=== PATIENT | female | born 1925 | race Caucasian/White ===

== ENCOUNTER 2017-07-12 11:39 | Emergency (ER) | payer OTHER, MEDICARE ==
[~2017-07-12] VITALS: Ht 149.9 cm; Wt 60.0 kg
[~2017-07-12 11:39] MED LIST: ASPI-1265 PO; CHOL200035 PO; CINA30TA PO; HCTZ25T PO; LEVO75TA57 PO; MULT1TAB PO
[2017-07-12] MEDS ORDERED: cloNIDine 0.1 mg tablet PO ONE (14:15)
[2017-07-12] MEDS ORDERED: acetaminophen 325mg tablet PO ONE (14:15)
[2017-07-12] MEDS ORDERED: lisinopril 10 MG tablet PO ONE (14:15)
[2017-07-12 15:08] VITALS: BP 161/88
== END 2017-07-12 16:16 | disposition home or self-care (01) ==
LOC: ER 11:39
DX: S16.1XXA Strain of muscle, fascia and tendon at neck level, initial encounter (principal); I10 Essential (primary) hypertension; Z98.890 Other specified postprocedural states; Z88.5 Allergy status to narcotic agent; Z79.82 Long term (current) use of aspirin; V89.2XXA Person injured in unspecified motor-vehicle accident, traffic, initial encounter; Y93.89 Activity, other specified; Y92.89 Other specified places as the place of occurrence of the external cause; Y99.8 Other external cause status
CPT/HCPCS: 72125; 99284